=== PATIENT | male | born 1955 | race Caucasian/White ===

== ENCOUNTER 2016-09-24 16:02 | Emergency (ER) | payer OTHER ==
[2016-09-24] MEDS ORDERED: ASPIRIN 81 MG CHEW TAB ONE (16:23)
[2016-09-24] MEDS ORDERED: SODIUM CHLORIDE 0.9% 2,000 ML ONE (17:30)
[2016-09-24] MEDS ORDERED: humuLIN REG INSULIN ONE (17:30)
== END 2016-09-24 18:58 | disposition home or self-care (01) ==
LOC: ER 16:02
DX: I25.118 Atherosclerotic heart disease of native coronary artery with other forms of angina pectoris (principal); E86.0 Dehydration; R73.9 Hyperglycemia, unspecified; Z79.899 Other long term (current) drug therapy; F17.210 Nicotine dependence, cigarettes, uncomplicated
CPT/HCPCS: 36415; 71010; 80053; 82550; 83735; 84484; 85025; 85610; 85730; 93005; 96361; 96374